=== PATIENT | female | born 1955 | race Caucasian/White ===

== ENCOUNTER 2019-11-12 09:05 | Emergency (ER) | payer OTHER ==
[2019-11-12 10:08] VITALS: BP 106/65
--- NOTE | 2019-11-12 10:09 | UC ---
FLU HPI - HPI Summary HPI Summary: 64-year-old female who has had flulike symptoms for approximately 3 days. She states she is improved today however fairly fatigued. She no longer has a fever. She's a nonsmoker. She did receive a flu shot last fall. - History of Current Complaint Chief Complaint: UCRespiratory Stated Complaint: CHEST CONGESTION/COUGH Time Seen by Provider: 11/12/19 09:57 Hx Obtained From: Patient ?: No Onset/Duration: Gradual Onset, Lasting Days Severity Currently: Mild Severity Initially: Moderate Pain Intensity: 5 Associated Signs & Symptoms: Positive: Fever, Myalgia, Cough, Nasal Congestion, Headache - Allergy/Home Medications Allergies/Adverse Reactions: Allergies Allergy/AdvReac Type Severity Reaction Status Date / Time aspirin Allergy "My Verified 11/12/19 10:03 sinuses swell up and my throat swells." NSAIDS (Non-Steroidal Allergy "My Verified 11/12/19 10:03 Anti-Inflamma sinuses swell up and my throat swells." Penicillins Allergy Rash Verified 11/12/19 10:03 Home Medications: Home Medications Benzonatate CAP* [Tessalon 100 MG CAP*] 100 mg PO TID PRN #21 cap 11/12/19 [Rx] Lisinopril TAB* [Prinivil TAB*] 10 mg PO DAILY 11/12/19 [History Confirmed 11/11] Omeprazole CAP (NF) [Prilosec CAP* 20 MG] 20 mg PO DAILY 11/12/19 [History Confirmed 11/12/19] Pravastatin (NF) [Pravachol (NF)] 40 mg PO 1700 11/12/19 [History Confirmed 11/01] glipiZIDE TAB* [Glucotrol TAB*] 2.5 mg PO DAILY 11/12/19 [History Confirmed 11/01] metFORMIN* [Glucophage 1000 MG TAB *] 1,000 mg PO QPM 11/12/19 [History Confirmed 11/12/19] PMH/Surg Hx/FS Hx/Imm Hx Previously Healthy: Yes GI/ History: Renal Disease - Glomerular nephritis 2009 - Surgical History Surgical History: Yes Surgery Procedure, Year, and Place: Nasal Polyps, 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 ENT: Positive: Ear Ache, Nasal Discharge Respiratory: Positive: Cough - Nonproductive cough. Musculoskeletal: Positive: Myalgia Is Patient Immunocompromised?: No Physical Exam Triage Information Reviewed: Yes Appearance: Well-Appearing, No Pain Distress, Well-Nourished Vital Signs: Initial Vital Signs Temp 98.7 F 11/12/19 10:00 Pulse 94 11/12/19 10:00 Resp 16 11/12/19 10:00 BP 106/65 11/12/19 10:00 Pulse Ox 97 11/12/19 10:00 Vital Signs Reviewed: Yes Eyes: Positive: Conjunctiva Clear ENT: Positive: Pharynx normal, Nasal drainage - Clear nasal coryza, TMs normal, Uvula midline Neck: Positive: Supple, Nontender, No Lymphadenopathy Respiratory: Positive: Lungs clear, Normal breath sounds, No respiratory distress, No accessory muscle use Cardiovascular: Positive: RRR, No Murmur, Pulses Normal, Brisk Capillary Refill Musculoskeletal Exam: Normal Neurological Exam: Normal Psychological Exam: Normal Skin Exam: Normal Flu Course/Dx - Course Course Of Treatment: Patient is comfortable here and much improved today as compared to the first 3 days. - Differential Dx/Diagnosis Provider Diagnosis: Flu-like symptoms Discharge ED - Sign-Out/Discharge Documenting (check all that apply): Patient Departure All imaging exams completed and their final reports reviewed: No Studies - Discharge Plan Condition: Good Disposition: HOME Prescriptions: Benzonatate CAP* [Tessalon 100 MG CAP*] 100 mg PO TID PRN #21 cap PRN Reason: Cough Patient Education Materials: Influenza (DC) Forms: *Work Release Referrals: Allison Becerra PA [Primary Care Provider] - Additional Instructions: Increase fluids, [id number] cold medicine as directed, follow-up with your primary care provider if no improvement in 3 or 4 days. - Billing Disposition and Condition Condition: GOOD Disposition: Home
== END 2019-11-12 10:22 | disposition home or self-care (01) ==
LOC: UCCORT 09:05
DX: R05 Cough (principal); R50.9 Fever, unspecified; M79.10 Myalgia, unspecified site; H92.09 Otalgia, unspecified ear; R09.89 Other specified symptoms and signs involving the circulatory and respiratory systems; Z88.0 Allergy status to penicillin; Z88.6 Allergy status to analgesic agent
CPT/HCPCS: 99212; G0463

== ENCOUNTER 2019-11-30 16:50 | Emergency (ER) | payer OTHER ==
[2019-11-30 17:12] VITALS: BP 102/64
--- NOTE | 2019-11-30 17:31 | UC ---
Respiratory Complaint HPI - HPI Summary HPI Summary: 64 yo woman with asthma, with 3 week history of cough which began with a fever. She is here because of persistent cough. She has used tessalon perles, but not using albuterol. No shortness of breath, but some chest soreness secondary to coughing. - History of Current Complaint Chief Complaint: UCGeneralIllness Stated Complaint: COUGH Time Seen by Provider: 11/30/19 17:13 Hx Obtained From: Patient Onset/Duration: Gradual Onset, Lasting Weeks - about 3 Timing: Intermittent Episodes Severity Initially: Moderate Severity Currently: Moderate Pain Intensity: 0 Character: Cough: Productive - only on occasion Aggravating Factors: Recumbent Position Associated Signs And Symptoms: Negative: Dyspnea, Fever, URI, Nasal Congestion, Hoarseness - Risk Factors Pulmonary Embolism Risk Factors: Negative Cardiac Risk Factors: Hypertension Pseudomonas Risk Factors: Negative Tuberculosis Risk Factors: Negative - Allergies/Home Medications Allergies/Adverse Reactions: Allergies Allergy/AdvReac Type Severity Reaction Status Date / Time aspirin Allergy "My Verified 11/30/19 17:12 sinuses swell up and my throat swells." NSAIDS (Non-Steroidal Allergy "My Verified 11/30/19 17:12 Anti-Inflamma sinuses swell up and my throat swells." Penicillins Allergy Rash Verified 11/30/19 17:12 Home Medications: Home Medications Benzonatate CAP* [Tessalon 100 MG CAP*] 100 mg PO TID PRN #21 cap 11/12/19 [Rx Confirmed 11/30/19] Lisinopril TAB* [Prinivil TAB*] 10 mg PO DAILY 11/12/19 [History Confirmed 11/29] Omeprazole CAP (NF) [Prilosec CAP* 20 MG] 20 mg PO DAILY 11/12/19 [History Confirmed 11/30/19] Pravastatin (NF) [Pravachol (NF)] 40 mg PO 1700 11/12/19 [History Confirmed ] glipiZIDE TAB* [Glucotrol TAB*] 2.5 mg PO DAILY 11/12/19 [History Confirmed ] metFORMIN* [Glucophage 1000 MG TAB *] 1,000 mg PO QPM 11/12/19 [History Confirmed 11/30/19] Fluticasone-Salmeterol 250-50* [Advair Diskus 250-50*] 1 puff INH BID 11/30/19 [ History Confirmed 11/30/19] predniSONE [Prednisone 20 MG TAB] 40 mg PO DAILY #10 tablet 11/30/19 [Rx] PMH/Surg Hx/FS Hx/Imm Hx Previously Healthy: Yes Respiratory History: Asthma GI/ History: Gastroesophageal Reflux - Surgical History Surgical History: Yes Surgery Procedure, Year, and Place: Nasal Polyps, 1974 1980s 1990s 2018; D&C; C- Section, 1998 - Family History Known Family History: Positive: Respiratory Disease - only one uncle has asthma - Social History Occupation: Employed Full-time - currently being furloughed. Alcohol Use: None Substance Use Type: None Smoking Status (MU): Never Smoked Tobacco Review of Systems All Other Systems Reviewed And Are Negative: Yes Constitutional: Positive: Negative Skin: Positive: Negative Eyes: Positive: Negative ENT: Positive: Negative Respiratory: Positive: Cough, Other - no hx of environmental allergies. Negative: Shortness Of Breath Cardiovascular: Positive: Chest Pain - mild rib pain with coughing, Other - has been on lisinopril for years without development of cough Gastrointestinal: Positive: Negative Genitourinary: Positive: Negative Motor: Positive: Negative Neurovascular: Positive: Negative Musculoskeletal: Positive: Negative Neurological/Mental Status: Positive: Negative Psychological: Positive: Negative Is Patient Immunocompromised?: No Physical Exam Triage Information Reviewed: Yes Appearance: Well-Appearing - looks a little pale. Vital Signs: Initial Vital Signs Temp 99.6 F 11/30/19 17:08 Pulse 100 11/30/19 17:08 Resp 18 11/30/19 17:08 BP 102/64 11/30/19 17:08 Pulse Ox 97 11/30/19 17:08 Eye Exam: Normal ENT: Positive: Pharynx normal Neck: Positive: Supple, Nontender, No Lymphadenopathy Respiratory: Positive: Lungs clear, Normal breath sounds, No respiratory distress. Negative: Wheezing Cardiovascular: Positive: RRR, No Murmur Musculoskeletal Exam: Normal Neurological Exam: Normal Psychological Exam: Normal Skin Exam: Normal Respiratory Course/Dx - Course Course Of Treatment: post infectious cough discussed--not worsening, but fatigued by cough. Discussed oral steroid and encouraged trial of albuterol given hx of asthma. - Differential Dx/Diagnosis Differential Diagnosis/HQI/PQRI: Asthma, Other - post infectious cough Provider Diagnosis: Asthma Discharge ED - Sign-Out/Discharge Documenting (check all that apply): Patient Departure All imaging exams completed and their final reports reviewed: No Studies - Discharge Plan Condition: Stable Disposition: HOME Prescriptions: predniSONE [Prednisone 20 MG TAB] 40 mg PO DAILY #10 tablet Patient Education Materials: Asthma (ED) Referrals: Allison Becerra PA [Primary Care Provider] - Additional Instructions: As reviewed, the cough is consistent with a post infectious cough. Please take prednisone 40mg once daily with food for 5 days. Use albuterol before bed as this is likely to help to decrease your cough as well. - Billing Disposition and Condition Condition: STABLE Disposition: Home
== END 2019-11-30 17:49 | disposition home or self-care (01) ==
LOC: UCCORT 16:50
DX: J45.909 Unspecified asthma, uncomplicated (principal); Z88.6 Allergy status to analgesic agent; Z88.0 Allergy status to penicillin; K21.9 Gastro-esophageal reflux disease without esophagitis; Z79.899 Other long term (current) drug therapy
CPT/HCPCS: 99212; G0463